=== PATIENT | male | born 1980 | race Two or more races ===

== ENCOUNTER 2018-03-05 20:17 | Emergency (ER) | payer MEDICAID ==
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
== END 2018-03-05 20:59 | disposition left against medical advice (07) ==
LOC: ER 20:17
DX: M25.572 Pain in left ankle and joints of left foot (principal); F17.210 Nicotine dependence, cigarettes, uncomplicated
CPT/HCPCS: 99283

== ENCOUNTER 2018-10-03 14:57 | Emergency (ER) | payer MEDICAID ==
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
--- NOTE | 2018-10-04 13:39 | RADIOLOGY REPORT ---
EXAM: LEFT ANKLE HISTORY: LEFT ANKLE PAIN. OPEN REDUCTION ONE YEAR PRIOR. TECHNIQUE: Three views of the left ankle were obtained. Comparison: None. FINDINGS: There are two fixation screws within the medial malleolus. The hardware appears intact. No fracture line is currently seen. Chronic appearing irregularity at the tip of the medial malleolus likely represents sequelae of old trauma. A small 2 mm calcific fragment near the anterior tibiotalar joint space may represent sequelae of old trauma versus degenerative joint body. No acute fracture is seen. Alignment appears maintained. IMPRESSION: ABOVE. JOB NUMBER: [id number] [facility]
== END 2018-10-03 16:45 | disposition home or self-care (01) ==
LOC: ER 14:57
DX: S96.912A Strain of unspecified muscle and tendon at ankle and foot level, left foot, initial encounter (principal); X58.XXXA Exposure to other specified factors, initial encounter; Z87.891 Personal history of nicotine dependence
CPT/HCPCS: 99283